=== PATIENT | male | born 1945 | race Caucasian/White ===

== ENCOUNTER 2017-08-17 01:11 | Inpatient (IN) | payer OTHER ==
[~2017-08-17] VITALS: Ht 180.3 cm; Wt 72.6 kg
[2017-09-08] MEDS ORDERED: INTEGRA PLUS C1 EACH PO (09:48)
[2017-09-08] MEDS ORDERED: CLONAZEPAM0.5 MG PO (09:50)
[2017-09-08] MEDS ORDERED: KEPPRA500 MG PO (09:50)
== END 2017-09-08 21:20 | disposition home health service (06) | DRG 166 ==
LOC: ER 01:11 → EDBD 01:31 → ER 01:31 → MEDI 12:30 → MEDJ 12:30
PROVIDERS: Otolaryngology
PROC: 4A033R1 Measurement of Arterial Saturation, Peripheral, Percutaneous Approach (ICD-10-PCS; 2017-08-17)
PROC: 3E0F7GC Introduction of Other Therapeutic Substance into Respiratory Tract, Via Natural or Artificial Opening (ICD-10-PCS; 2017-08-17)
PROC: 8E0ZXY6 Isolation (ICD-10-PCS; 2017-08-21)
PROC: 0JBR0ZZ Excision of Left Foot Subcutaneous Tissue and Fascia, Open Approach (ICD-10-PCS; 2017-08-22)
PROC: 0BH17EZ Insertion of Endotracheal Airway into Trachea, Via Natural or Artificial Opening (ICD-10-PCS; 2017-08-22)
PROC: 0BC18ZZ Extirpation of Matter from Trachea, Via Natural or Artificial Opening Endoscopic (ICD-10-PCS; 2017-08-22)
PROC: 0CJS8ZZ Inspection of Larynx, Via Natural or Artificial Opening Endoscopic (ICD-10-PCS; 2017-08-22)
PROC: 0B21XFZ Change Tracheostomy Device in Trachea, External Approach (ICD-10-PCS; 2017-08-22)
PROC: 0BB18ZX Excision of Trachea, Via Natural or Artificial Opening Endoscopic, Diagnostic (ICD-10-PCS; 2017-08-22)
PROC: 4A12X4Z Monitoring of Cardiac Electrical Activity, External Approach (ICD-10-PCS; 2017-08-22)
PROC: 0BW17FZ Revision of Tracheostomy Device in Trachea, Via Natural or Artificial Opening (ICD-10-PCS; principal; 2017-08-22 07:00)
PROC: CP1Z1ZZ Planar Nuclear Medicine Imaging of Musculoskeletal System, All using Technetium 99m (Tc-99m) (ICD-10-PCS; 2017-08-23)
PROC: CW1NLZZ Planar Nuclear Medicine Imaging of Whole Body using Gallium 67 (Ga-67) (ICD-10-PCS; 2017-08-25)
DX: J20.9 Acute bronchitis, unspecified (principal); L89.623 Pressure ulcer of left heel, stage 3; N39.0 Urinary tract infection, site not specified; G40.89 Other seizures; J95.03 Malfunction of tracheostomy stoma; B37.0 Candidal stomatitis; Z74.01 Bed confinement status; Z93.1 Gastrostomy status; B96.29 Other Escherichia coli [E. coli] as the cause of diseases classified elsewhere; B96.5 Pseudomonas (aeruginosa) (mallei) (pseudomallei) as the cause of diseases classified elsewhere; B95.62 Methicillin resistant Staphylococcus aureus infection as the cause of diseases classified elsewhere; B37.2 Candidiasis of skin and nail; Z78.1 Physical restraint status